=== PATIENT | female | born 1950 | race Caucasian/White ===

== ENCOUNTER → 2021-01-24 13:46 | Outpatient (CLI) | payer MEDICARE, SELFPAY ==
[2021-01-24 13:56] LABS: Basophils % 0.8 % (0.1-2.0); Eosinophils # 0.1 K/mm3 (0.0-0.4); Eosinophils % 1.7 % (0.1-12.0); Hematocrit 33.9 % (37.0-47.0); Hemoglobin 11.3 g/dL (12.2-16.2); Lymphocytes # 1.3 K/mm3 (0.7-4.5); Lymphocytes % 27.4 % (10-50); Mean Corpuscular HGB Conc 33.4 g/dL (31.8-35.4); Mean Corpuscular Hemoglobin 34.9 pg (27.0-31.2); Mean Corpuscular Volume 104.4 fl (81-99); Mean Platelet Volume 8.8 fl (7.4-10.4); Monocytes # 0.2 K/mm3 (0.1-1.0); Monocytes % 3.6 % (1.7-9.3); Neutrophils # 3.1 K/mm3 (1.8-7.8); Neutrophils % 66.4 % (37.0-80.0); Platelet Count 71 K/mm3 (142-424); Red Blood Count 3.25 M/mm3 (4.20-5.40); Red Cell Distribution Width 16.3 % (11.5-17.5); White Blood Count 4.7 K/mm3 (4.8-10.8)
[2021-01-24 14:06] LABS: Alanine Aminotransferase 37 U/L (12-78); Albumin Level 2.8 g/dl (3.5-5.0); Alkaline Phosphatase 189 U/L (38-126); Anion Gap 8.6 mEq/L (5-15); Aspartate Amino Transferase 60 U/L (14-36); Bilirubin,Total 1.5 mg/dl (0.2-1.3); Blood Urea Nitrogen 16 mg/dl (7-17); Calcium 9.1 mg/dl (8.4-10.2); Carbon Dioxide 24 mmol/L (22.0-30.0); Chloride 109 mmol/L (98-107); Chol/HDL Ratio 3.8 (1-3.5); Cholesterol 196 mg/dl (140-200); Estimated Glomerular Filt Rate 82 ml/min (>60); GFR (African American) 100 ML/MIN (>60); Globulin 2.7 g/dL (1.3-3.2); Glucose 97 mg/dl (74-100); HDL Cholesterol 51 mg/dl (40-60); Potassium 3.6 mmoL/L (3.5-5.1); Sodium 138 mmol/L (136-145); Total Protein,Serum 5.5 g/dl (6.3-8.2); Triglycerides 58 mg/dl (30-150); VLDL Cholesterol 12 mg/dL (0-40)
[2021-01-24 14:17] LABS: Direct LDL Cholesterol 98.45 mg/dL (100-129)
[2021-01-24 14:24] LABS: 25-OH Vitamin D, Total > 126 ng/mL (30-100)
[2021-01-24 14:56] LABS: Vitamin B12 989 pg/mL (239-931)
[2021-01-24 15:49] LABS: Amphetamine/Metha Screen,Urine Negative ng/ml (<1000); Barbiturates Screen,Urine Negative ng/ml (<200)
[2021-01-24 15:50] LABS: Benzodiazepines Screen,Urine Negative ng/ml (<200)
[2021-01-24 15:51] LABS: Cannabinoid Screen,Urine Negative ng/ml (<50)
[2021-01-24 15:52] LABS: Cocaine Screen,Urine Negative ng/ml (<300); Methadone Screen,Urine Negative ng/ml (<300)
[2021-01-24 15:53] LABS: Opiate Screen,Urine Negative ng/ml (<300)
[2021-01-24 15:54] LABS: Phencyclidine Screen,Urine Negative ng/ml (<25)
[2021-01-24 16:27] LABS: Ferritin 83.5 ng/ml (11.1-264)
== END ==
PROVIDERS: Visit Provider Family Medicine
DX: R01.1 Cardiac murmur, unspecified (principal); E78.5 Hyperlipidemia, unspecified; K74.3 Primary biliary cirrhosis; Z79.899 Other long term (current) drug therapy; E53.8 Deficiency of other specified B group vitamins; N39.0 Urinary tract infection, site not specified; E67.3 Hypervitaminosis D
CPT/HCPCS: 80053; 80061; 80305; 82306; 82607; 82728; 85025; 87086; 87088; 87186